=== PATIENT | female | born 1995 | race Caucasian/White ===

== ENCOUNTER 2021-01-03 09:42 | Emergency (ER) | payer MEDICAID ==
[~2021-01-03] VITALS: Ht 165.1 cm; Wt 59.0 kg
[2021-01-03 09:42] VITALS: BP_SYST 126
[2021-01-03] MEDS ORDERED: BACITRACIN 1 GM OINT TP ONE (10:00)
[2021-01-03 10:05] VITALS: BP_SYST 126
== END 2021-01-03 10:05 ==
LOC: SED 09:42
DX: Z48.00 Encounter for change or removal of nonsurgical wound dressing (principal)
CPT/HCPCS: 99283